=== PATIENT | female | born 1955 | race Caucasian/White ===

== ENCOUNTER 2021-06-01 14:00 | Outpatient (CLI) | payer MEDICARE, SELFPAY ==
--- NOTE | 2021-06-01 14:25 | ECG_ITS ---
Measurements Intervals [place] Rate: 54 P: -31 [place]: 165 QRS: -4 QRSD: 96 T: 76 QT: 399 QTc: 378 Interpretive Statements SINUS BRADYCARDIA BORDERLINE ST-T WAVE ABNORMALITY- HIGH LATERAL LEADS BORDERLINE ECG Electronically Signed On 06-01-2021 14:37:29 [employer] by Ynuior Cuadra D.O.
== END 2021-06-01 14:01 | disposition home or self-care (01) ==
PROVIDERS: PCP Family Medicine; Visit Provider Physician Assistant Medical
DX: Z01.810 Encounter for preprocedural cardiovascular examination (principal)
CPT/HCPCS: 93005

== ENCOUNTER → 2021-07-04 13:57 | Outpatient (CLI) | payer MEDICARE, SELFPAY ==
--- NOTE | ~2021-07-04 | MM_ITS ---
EXAMINATION: MM screening joi BI w luis a HISTORY: Screening mammogram TECHNIQUE: Craniocaudal and mediolateral oblique 3-D tomosynthesis images were obtained and synthetic 2-D images were generated. CAD analysis was submitted and interpreted. COMPARISON: 04/14/2019 bilateral screening mammogram BREAST PARENCHYMAL COMPOSITION: The breasts are heterogeneously dense, which may obscure small masses . FINDINGS: There is a biopsy marker on the left; history of prior bilateral benign breast biopsies, by stereotactic approach on the left in 2018 and excisional biopsy on the right in 2013 approximately. There is no evidence of suspicious mass, calcification, or architectural distortion to suggest malign rosalia in either breast. There has been no suspicious interval change. IMPRESSION: 1. No mammographic evidence of malignancy. 2. Recommend routine screening mammography in one year. BI-RADS Category 2: Benign finding(s). Reviewed, dictated and finalized at location A.
== END ==
PROVIDERS: PCP Family Medicine; Visit Provider Obstetrics & Gynecology
DX: Z12.31 Encounter for screening mammogram for malignant neoplasm of breast (principal)
CPT/HCPCS: 77063; 77067

== ENCOUNTER 2022-07-13 06:03 | Day surgery (SDC) | payer MEDICARE, SELFPAY ==
[2022-06-29 14:52] VITALS: BMI 29.0
[2022-07-03 09:39] VITALS: BMI 29.0
--- NOTE | 2022-07-10 12:28 | PM.IMHP ---
H&P: HPI History of Present Illness Date/Time: 07/10/22 12:28 Chief Complaint: postmenopausal bleeding Narrative: this is a 66-year-old female with postmenopausal bleeding admitted for hysteroscopy and dilatation curettage. Risks and benefits reviewed. Ultrasound showed endometrial lining to be greater than 4mm. She received the ACOG handouts entitled hysteroscopy as well as dilatation curettage. She had all questions answered and asked to proceed PMFSH Past Medical History Medical History BMI 28.0-28.9,adult Need for pneumococcal vaccination Rosacea Screening for lipid disorders Squamous cell carcinoma of left lower leg Family History Family History Mother Family history of lymphoma Father Family history of chronic obstructive pulmonary disease Family history of lung cancer Other Cerebrovascular accident Family history of heart disease in male family member before age 55 Family history of malignant neoplasm of male breast Hypertension Social History Social History Smoking status: Never smoker Second hand tobacco smoke exposure: No Alcohol intake: never Substance use: never Substance use type: does not use Living arrangements: with family Spiritual care concerns: No Meds Home Medications and Allergies Home Medications Medication Instructions Recorded Confirmed Type doxycycline hyclate 50 mg capsule 50 mg PO DAILY #90 caps 09/27/21 07/03/22 Rx rosuvastatin 20 mg tablet (Crestor) 20 mg PO EVERY OTHER DAY 07/03/22 07/03/22 History vit P-ecs-ucwz-bioflav-122HC 500 1 tablet PO DAILY 07/03/22 07/03/22 History mg-2.5 mg-25 mg tablet Allergies Allergy/AdvReac Type Severity Reaction Status Date / Time hydrocodone Allergy Unknown Unknown Verified 06/01/21 12:48 Exam Const: General: cooperative, healthy appearing, comfortable, well groomed and average body habitus Orientation/consciousness: oriented to person, oriented to place and oriented to time HENMT: Head: normal to inspection Resp: Effort & Inspection: normal respiratory effort Cardio: Rate: regular rate Rhythm: regular rhythm Heart sounds: S1 normal heart sound present and S2 normal heart sound present GI: Inspection: normal to inspection Auscultation: normal bowel sounds : External Female Exam: normal external appearance Speculum Exam - Vagina: normal appearance of the vagina Speculum Exam - Cervix: normal appearance of the cervix Bimanual exam- vagina & uterus: consistency normal Bimanual Exam- Adnexa, other: normal adnexae Assessment and Plan Assessment and plan (1) Postmenopausal bleeding: Code(s): N95.0 - Postmenopausal bleeding Status: Acute Plan hysteroscopy/dilatation and curettage
--- NOTE | 2022-07-13 05:42 | WPDHPUPDATE1 ---
History and Physical Update Update Date/Time: 07/13/22 05:42 History and Physical has been reviewed, including an updated exam of the patient. There are NO changes in the patient's condition. Risks, benefits, and alternatives have been discussed and questions answered. Patient agrees to proceed with procedure.
[2022-07-13] MEDS: ACETAMINOPHEN 500 MG TABLET 1000 MG PO (06:29)
[2022-07-13 06:31] VITALS: BP 146/62; PULSE 69; RESP 16; TEMP 37.2; O2SAT 98
[2022-07-13] MEDS: LACTATED RINGERS 1,000 ML 30 ML IV CONT (06:52)
--- NOTE | 2022-07-13 07:05 | WPDANESEPPF ---
Anes - Initial Pre Proc Eval Procedure: Operation Date: 07/13/22 07:30 Proposed Procedures p Hysteroscopy w/Dilation and Curettage - Joaquin Maza MD Date/Time: 07/13/22 07:05 Surgeon: Joaquin Maza MD Pre Op Diagnosis: Post Menopausal Bleeding Patient Data Age: 66 Gender: F Height: 1.7 m Weight: 84 kg Last Vital Signs Temp 37.2 C 07/13/22 06:31 Pulse 69 07/13/22 06:31 Resp 16 07/13/22 06:31 BP 146/62 H 07/13/22 06:31 Pulse Ox 98 07/13/22 06:31 O2 Del Method Room Air 07/13/22 06:31 Allergies Allergy/AdvReac Type Severity Reaction Status Date / Time hydrocodone Allergy Unknown Unknown Verified 07/13/22 06:26 Home Medications Medication Instructions Recorded Confirmed Type doxycycline hyclate 50 mg capsule 50 mg PO DAILY #90 caps 09/27/21 07/13/22 Rx rosuvastatin 20 mg tablet (Crestor) 20 mg PO EVERY OTHER DAY 07/03/22 07/13/22 History vit O-lvc-kcrf-bioflav-122HC 500 1 tablet PO DAILY 07/03/22 07/13/22 History mg-2.5 mg-25 mg tablet tramadol 50 mg tablet 50 mg PO Q6H PRN pain #10 tabs 07/13/22 Rx Patient hx anesthesia problems: none Family hx anesthesia problems: none Results Review: All pre-operative results and documents have been reviewed as part of the pre-operative evaluation. [facility] Past Medical History Medical History (Updated 07/12/22 @ 08:29 by Rigoberto Bruner DO) BMI 28.0-28.9,adult Hyperlipidemia Need for pneumococcal vaccination Rosacea Screening for lipid disorders Squamous cell carcinoma of left lower leg Family History Family History Mother Family history of lymphoma Father Family history of chronic obstructive pulmonary disease Family history of lung cancer Other Cerebrovascular accident Family history of heart disease in male family member before age 55 Family history of malignant neoplasm of male breast Hypertension Social History Social History Smoking status: Never smoker Second hand tobacco smoke exposure: No Alcohol intake: never Substance use: never Substance use type: does not use Living arrangements: with family Spiritual care concerns: No Anes - Eval Final PreProcedure Day of Procedure 07/13/22 07:05 Patient weight: overweight Heart: regular rate and rhythm Lungs: clear to auscultation Airway: Mallampati scale class II Neurological: alert and oriented Last oral intake: >/= 8 hours ASA classification: II Emergent: no Anesthetic plan: proceed Anesthesia type and monitoring: general GIVS and standard monitoring Results Review: All pre-operative results and documents have been reviewed as part of the pre-operative evaluation. Informed Consent: The patient's anesthetic plan and its attendant risks and benefits were discussed with the patient/family/POA. Questions were solicited and answers provided to the satisfaction of the patient/family/POA.
--- NOTE | 2022-07-13 07:41 | W.PM.PROC2 ---
Procedure Note - Detailed Date of Procedure 07/13/22 Pre-op Diagnosis Post Menopausal Bleeding Post-op Diagnosis Same Procedure Performed Hysteroscopy / dilatation curettage Surgeon Joaquin Maza MD Anesthesia MAC and Local Indications a 66-year-old female with postmenopausal bleeding Findings uterus sounded to 7cm. Benign atrophic endometrium was seen bilaterally. Description of Procedure The patient was prepped draped in normal sterile fashion placed in the dorsal lithotomy position. Excellent IV sedation weighted speculum placed in posterior fornix vagina. Anterior lip of the cervix grasped with single-tooth tenaculum 2.5cc of 1% xylocaine anesthesia placed at 2, 4, 8, 10:00 a.m. of the cervix. Uterus sounded to 7.5cm. Serial dilatation with fragmented dilators performed followed by passes the 5mm visualizing hysteroscope. Normal saline was used as visualizing medium. No abnormalities was seen. Each fallopian tube os could be seen the endometrium appeared bland and atrophic. Uterus was then scraped over the entire 360? until good grating sound was heard. Minimal tissue was able to be removed. The instruments with withdrawn the patient awakened. She went to recovery in satisfactory condition. All sponge, needle, instrument counts were correct. There were no immediate complications Estimated Blood Loss 5 Drains No Packing No Pathology Yes Complications No immediate complications Condition Stable Disposition PACU
[2022-07-13 07:48] VITALS: BP 130/67; PULSE 64; RESP 16; TEMP 36.4; O2SAT 98
[2022-07-13 08:00] VITALS: BP 132/81; PULSE 60; RESP 18; O2SAT 100
[2022-07-13] MEDS: LIDOCAINE HCL 1% LOCAL INJ 10 ML VIAL INFILTRATE (08:06)
[2022-07-13 08:15] VITALS: BP 138/77; PULSE 55; RESP 16; O2SAT 99
[2022-07-13 08:30] VITALS: BP 135/74; PULSE 58; RESP 18; O2SAT 99
== END 2022-07-13 09:00 | disposition home or self-care (01) ==
PROVIDERS: PCP Family Medicine; Visit Provider Obstetrics & Gynecology
PROC: 0U5B8ZZ Destruction of Endometrium, Via Natural or Artificial Opening Endoscopic (ICD-10-PCS; CPT 58563; principal; 2022-07-13 07:30)
DX: N95.0 Postmenopausal bleeding (principal)
CPT/HCPCS: 58558

== ENCOUNTER 2022-07-13 09:00 | Outpatient (NON) | payer MEDICARE, SELFPAY | END 2022-07-13 09:01 | disposition home or self-care (01) | LOC: ANHLAB 07-14 08:09 | PROVIDERS: PCP Family Medicine; Visit Provider Obstetrics & Gynecology | DX: N95.0 Postmenopausal bleeding (principal) | CPT/HCPCS: 88305 ==

== ENCOUNTER → 2022-08-07 15:50 | Outpatient (CLI) | payer MEDICARE, SELFPAY ==
--- NOTE | ~2022-08-07 | MM_ITS ---
EXAMINATION: MM screening joi BI w luis a HISTORY: Screening mammogram TECHNIQUE: Craniocaudal and mediolateral oblique 3-D tomosynthesis images were obtained and synthetic 2-D images were generated.. Bilateral rotated lateral CC views. CAD analysis was submitted and inter preted. COMPARISON: 07/04/2021, 04/14/2019 bilateral screening mammogram examinations BREAST PARENCHYMAL COMPOSITION: The breasts are heterogeneously dense, which may obscure small masses . FINDINGS: There is a biopsy marker on the left; history of bilateral prior benign breast biopsies. Th ere is no evidence of suspicious mass, calcification, or architectural distortion to suggest malignan cy in either breast. There has been no suspicious interval change. IMPRESSION: 1. No mammographic evidence of malignancy. 2. Recommend routine screening mammography in one year. BI-RADS Category 2: Benign finding(s). Reviewed, dictated and finalized at location A.
== END ==
PROVIDERS: PCP Family Medicine; Visit Provider Obstetrics & Gynecology
DX: Z12.31 Encounter for screening mammogram for malignant neoplasm of breast (principal)
CPT/HCPCS: 77063; 77067

== ENCOUNTER 2023-09-26 13:28 | Outpatient (CLI) | payer MEDICARE, SELFPAY ==
--- NOTE | ~2023-09-26 | MM_ITS ---
EXAMINATION: MM screening joi BI w luis a HISTORY: Screening TECHNIQUE: Craniocaudal and mediolateral oblique 3-D tomosynthesis images were obtained and synthetic 2-D images were generated. CAD analysis was submitted and interpreted. COMPARISON: Comparison to multiple prior studies sequentially, with oldest reviewed study dated 03/18. BREAST PARENCHYMAL COMPOSITION: Dense: The breasts are heterogeneously dense, which may obscure small masses FINDINGS: There is no evidence of suspicious mass, calcification, or architectural distortion to sugg est malignancy in either breast. There has been no suspicious interval change. IMPRESSION: 1. No mammographic evidence of malignancy. 2. Recommend routine screening mammography in one year. BI-RADS Category 1: Negative Reviewed, dictated and finalized at location B.
== END 2023-09-26 13:29 ==
LOC: MICIMG 13:29
PROVIDERS: PCP Family Medicine; Visit Provider Obstetrics & Gynecology
DX: Z12.31 Encounter for screening mammogram for malignant neoplasm of breast (principal)
CPT/HCPCS: 77063; 77067

== ENCOUNTER 2023-10-31 13:55 | Outpatient (CLI) | payer MEDICARE, SELFPAY ==
--- NOTE | 2023-10-31 15:12 | ECG_ITS ---
Test Date: 2023-10-31 15:25:36 Measurements Intervals [place] Rate: 64 P: 26 [place]: 170 QRS: 10 QRSD: 109 T: 89 QT: 387 QTc: 400 Interpretive Statements SINUS RHYTHM POOR R WAVE PROGRESSION ST-T WAVE ABNORMALITY IN HIGH LATERAL LEADS- CONSIDER ISCHEMIA BASELINE ARTIFACT- I, II, III, AVR, AVL, AVF, V1-V3 ABNORMAL ECG No previous ECG available for comparison Electronically Signed On 10-31-2023 17:39:13 CDT by Yunior Cuadra D.O.
[2023-10-31 15:34] LABS: Basophils Percent Auto 0.5 % (0.2-1.2); Eosinophils Absolute Auto 0.1 K/mm3 (0-0.3); Eosinophils Percent Auto 2.1 % (0-4.4); Hematocrit 42.8 % (37.0-47.0); Hemoglobin 13.5 g/dL (12.0-15.0); Immature Granulocyte Absolute 0.02 K/mm3 (0.00-0.031); Immature Granulocyte Percent A 0.3 % (0-0.5); Lymphocytes Absolute Auto 1.66 K/mm3 (0.9-3.2); Lymphocytes Percent Auto 26.9 % (18.3-44.2); Mean Corpuscular HGB Conc 31.5 g/dl (32-36); Mean Corpuscular Hemoglobin 30.8 pg (26-34); Mean Corpuscular Volume 97.7 fl (80-100); Mean Platelet Volume 10.7 fl (7.4-10.4); Monocytes Absolute Auto 0.6 K/mm3 (0.1-0.6); Monocytes Percent Auto 9.7 % (2.6-8.5); Neutrophils Absolute Auto 3.7 K/mm3 (1.3-6.7); Neutrophils Percent Auto 60.5 % (45.5-73.1); Platelet Count Result 151 k/mm3 (150-375); Red Blood Count 4.38 M/mm3 (4.2-5.4); Red Cell Distribution Width 12.5 % (11.5-14.5); White Blood Count 6.2 K/mm3 (4.5-10.0)
[2023-10-31 15:44] LABS: INR 0.9; Prothrombin Time 12.9 Seconds (11.1-14.7)
[2023-10-31 15:45] LABS: Partial Thromboplastin Time 25.5 Seconds (22.3-36.8)
[2023-10-31 15:49] LABS: Alanine Aminotransferase 24 U/L (6-35); Albumin Level 4.1 g/dL (3.5-5.1); Alkaline Phosphatase 118 U/L (38-126); Anion Gap 6 mmol/L (4-12); Aspartate Amino Transferase 32 U/L (14-36); Bilirubin,Total 0.6 mg/dL (0.2-1.3); Blood Urea Nitrogen 13 mg/dL (7-17); Calcium 9.4 mg/dL (8.4-10.2); Carbon Dioxide 33 mmol/L (22-30); Chloride 104 mmol/L (98-107); Estimated Glomerular Filt Rate > 60; Glucose 157 mg/dL (65-110); Potassium 4.5 mmol/L (3.4-5.0); Sodium 143 mmol/L (137-145)
== END 2023-10-31 13:56 | disposition home or self-care (01) ==
LOC: ANHSURGERY 13:58
PROVIDERS: PCP Family Medicine; Visit Provider Urology
DX: Z01.818 Encounter for other preprocedural examination (principal); N81.2 Incomplete uterovaginal prolapse; E78.5 Hyperlipidemia, unspecified; R94.31 Abnormal electrocardiogram [ECG] [EKG]
CPT/HCPCS: 36415; 80053; 85025; 85610; 85730; 86850; 86900; 86901; 93005

== ENCOUNTER 2023-11-12 00:27 | Day surgery (SDC) | payer MEDICARE, SELFPAY ==
[2023-10-31 14:25] VITALS: BP 121/71; PULSE 65; RESP 16; TEMP 37.6; O2SAT 97
[2023-10-31 14:26] VITALS: BMI 32.1
--- NOTE | 2023-10-31 14:49 | PC.NURSE ---
Report to the Outpatient Waiting Room, entrance under the green pavilion located off [facility], at time __6:00AM on date __11/12/23 . Planned Procedure Time: __7:30AM . Time changes happen often and if your time is changed the preop area will call you the afternoon before. - You and your visitor will be asked to self-screen and do not enter if you have any COVID symptoms. - A mask is optional within the hospital at this time. Patients may have clear liquids (water, carbonated beverages, clear teas, apple juice) until 3 hours prior to surgery with a maximum of 20 ounces. - No food from midnight until time of surgery. Take the following medications with a SIP of water the morning of surgery: ___NONE DO NOT STOP ANY OF YOUR OTHER PRESCRIPTION MEDICATIONS PRIOR TO SURGERY ?EXCEPT THE FOLLOWING Medications to discontinue per physician ____HOLD ALL VITAMINS/SUPPLEMENTS AND NSAIDS(IBUPROFEN)7 DAYS PRE-OP PER DR ESPINOZA Date to take last dose 11/04/23 Please no make-up, nail italian, hairspray, perfume, deodorant, or body powder the day of surgery. No jewelry (including any body piercings) or valuables the day of surgery, leave them at home. Please take a shower or bath the night before, or the morning of, surgery with an antibacterial soap. Wear comfortable, loose fitting clothing. - Jewelry must be removed prior to entering the operating room. Rings and piercings that are not removed may be cut off. - The hospital will not accept responsibility for valuables. - Please leave all valuables, including medications, at home the day of surgery. If you are going home after surgery, a licensed company driver must drive you home. - NO public transportation without another adult if you receive anesthesia. - We recommend that an adult stay with you for 24 hours following discharge. - We also recommend that you do not drive, make important decision, drink alcoholic beverages, or take any drugs that were not prescribed by your health care provider for at least 24 hours after your discharge time. Follow any additional instructions given to you from your surgeon. If you or anyone in your household have experienced Covid symptoms in the past week, please notify your surgeon or the nurse liaison at the phone number below for possible testing. Telephone instructions given to ____PATIENT and asked if any additional questions and then verbalized understanding. Patient advised to call surgeon office or pre surgery nurse liaison [phone] if any additional questions.
--- NOTE | 2023-11-04 09:40 | PM.IMHP ---
H&P: HPI History of Present Illness Date/Time: 11/04/23 09:40 Chief Complaint: pelvic organ prolapse Narrative: she has pelvic organ prolapse as well as occult stress incontinence Review of Systems Review of Systems: All systems reviewed & are unremarkable except as noted in HPI and below PMFSH Past Medical History Medical History BMI 28.0-28.9,adult BMI 30.0-30.9,adult Hyperlipidemia Need for pneumococcal vaccination Retinal tear Rosacea Screening for lipid disorders Squamous cell carcinoma of left lower leg Surgical History Surgical History History of dilation and curettage Family History Family History Mother Family history of lymphoma Father Family history of chronic obstructive pulmonary disease Family history of lung cancer Asbestosis COPD (chronic obstructive pulmonary disease) Sibling No problems noted. Other Cerebrovascular accident Family history of heart disease in male family member before age 55 Family history of malignant neoplasm of male breast Hypertension Social History Social History Smoking status: Never smoker Second hand tobacco smoke exposure: No Alcohol intake: never Substance use: never Substance use type: does not use Lack of Transportation: No Lack of Food: Never True Current Housing: I Have Housing Concerned About Future Housing: No Difficulty Paying Gas/Electric Bills: No Difficulty Paying for Meds: No Currently Unemployed: No Education: Trade/Vocational Certificate Difficulty w/ Childcare or Family Care: No Living arrangements: with family Additional living arrangements comments: [facility] Occupation/Education: retired 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 Gender identity (if verbalized by the patient): Female Spiritual care concerns: No Meds Home Medications and Allergies Home Medications Medication Instructions Recorded Confirmed Type vit B-ujp-vrrr-bioflav-122HC 500 1 tablet PO DAILY 07/03/22 10/31/23 History mg-2.5 mg-25 mg tablet rosuvastatin 20 mg tablet (Crestor) 20 mg PO EVERY OTHER DAY #90 tabs 08/23/23 10/31/23 Rx carboxymethyl 0.5 %-glycerin 1 1 drp EACH EYE QID PRN Dry Eye(S) 10/31/23 10/31/23 History %-polysorb 80 0.5 %-PF eye dropperette (Refresh Optive Gregory-3 (PF)) doxycycline hyclate 50 mg capsule 50 mg PO QACLUNCH 10/31/23 10/31/23 History ibuprofen 200 mg tablet 600 mg PO Q6H PRN Pain 10/31/23 10/31/23 History ketoconazole 2 % topical cream 1 applic topical HS PRN Skin 10/31/23 10/31/23 History Irritation Allergies Allergy/AdvReac Type Severity Reaction Status Date / Time hydrocodone AdvReac Severe Nausea Verified 10/31/23 14:14 Exam Narrative: no acute distress normal breathing apex at 0 alert and oriented x3 urethral mobility Assessment and Plan Assessment and plan (1) Uterine prolapse: Code(s): N81.4 - Uterovaginal prolapse, unspecified Status: Acute (2) BRI (stress urinary incontinence, female): Code(s): N39.3 - Stress incontinence (female) (male) Status: Acute Plan plan for robotic colpopexy for her uterine prolapse. Urethral sling secondary to occult stress incontinence. Understands risks of bleeding, infection, damage to surrounding organs, damage to the urinary tract, diskitis, recurrent or persistent prolapse, recurrent or persistent incontinence, hip and leg pain, mesh exposure, dyspareunia, urinary retention. Agrees to proceed
[2023-11-12] VITALS (10 sets, daily range): BP systolic 127–158; BP diastolic 73–87; PULSE 65–88; RESP 12–18; TEMP 36.1–37.1; O2SAT 95–100
--- NOTE | 2023-11-12 04:33 | WPDHPUPDATE1 ---
History and Physical Update Update Date/Time: 11/12/23 04:33 History and Physical has been reviewed, including an updated exam of the patient. There are NO changes in the patient's condition. Risks, benefits, and alternatives have been discussed and questions answered. Patient agrees to proceed with procedure.
--- NOTE | 2023-11-12 05:59 | PM.IMHP ---
H&P: HPI History of Present Illness Date/Time: 11/12/23 05:59 Chief Complaint: Uterine prolapse Narrative: 60-year-old female admitted for supracervical hysterectomy and bilateral salpingo oophorectomy secondary to uterine prolapse. She also will undergo sling and sacral colpopexy robotically. Risks and benefits reviewed [facility] Past Medical History Medical History BMI 28.0-28.9,adult BMI 30.0-30.9,adult Hyperlipidemia Need for pneumococcal vaccination Retinal tear Rosacea Screening for lipid disorders Squamous cell carcinoma of left lower leg Surgical History Surgical History History of dilation and curettage Family History Family History Mother Family history of lymphoma Father Family history of chronic obstructive pulmonary disease Family history of lung cancer Asbestosis COPD (chronic obstructive pulmonary disease) Sibling No problems noted. Other Cerebrovascular accident Family history of heart disease in male family member before age 55 Family history of malignant neoplasm of male breast Hypertension Social History Social History Smoking status: Never smoker Second hand tobacco smoke exposure: No Alcohol intake: never Substance use: never Substance use type: does not use Lack of Transportation: No Lack of Food: Never True Current Housing: I Have Housing Concerned About Future Housing: No Difficulty Paying Gas/Electric Bills: No Difficulty Paying for Meds: No Currently Unemployed: No Education: Trade/Vocational Certificate Difficulty w/ Childcare or Family Care: No Living arrangements: with family Additional living arrangements comments: [facility] Occupation/Education: retired 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 Gender identity (if verbalized by the patient): Female Spiritual care concerns: No Meds Home Medications and Allergies Home Medications Medication Instructions Recorded Confirmed Type vit O-kwo-emlj-bioflav-122HC 500 1 tablet PO DAILY 07/03/22 10/31/23 History mg-2.5 mg-25 mg tablet rosuvastatin 20 mg tablet (Crestor) 20 mg PO EVERY OTHER DAY #90 tabs 08/23/23 10/31/23 Rx carboxymethyl 0.5 %-glycerin 1 1 drp EACH EYE QID PRN Dry Eye(S) 10/31/23 10/31/23 History %-polysorb 80 0.5 %-PF eye dropperette (Refresh Optive Gregory-3 (PF)) doxycycline hyclate 50 mg capsule 50 mg PO QACLUNCH 10/31/23 10/31/23 History ibuprofen 200 mg tablet 600 mg PO Q6H PRN Pain 10/31/23 10/31/23 History ketoconazole 2 % topical cream 1 applic topical HS PRN Skin 10/31/23 10/31/23 History Irritation Allergies Allergy/AdvReac Type Severity Reaction Status Date / Time hydrocodone AdvReac Severe Nausea Verified 10/31/23 14:14 Exam Const: General: cooperative, healthy appearing and comfortable Nutritional Appearance: average body habitus Orientation/consciousness: oriented to person, oriented to place and oriented to time Resp: Effort & Inspection: normal respiratory effort Cardio: Rate: regular rate Rhythm: regular rhythm Heart sounds: S1 normal heart sound present and S2 normal heart sound present GI: Inspection: normal to inspection : External Female Exam: normal external appearance Speculum Exam - Vagina: normal appearance of the vagina (Uterine prolapse noted) Speculum Exam - Cervix: normal appearance of the cervix Bimanual exam- vagina & uterus: Uterus displaced (Uterine prolapse noted) Bimanual Exam- Adnexa, other: normal adnexae Assessment and Plan Assessment and plan (1) BRI (stress urinary incontinence, female): Code(s): N39.3 - Stress incontinence (female) (male) Status: Acute (2) Uterine prolapse: Code(s): N
--- NOTE | 2023-11-12 06:01 | WPDHPUPDATE1 ---
History and Physical Update Update Date/Time: 11/12/23 06:01 History and Physical has been reviewed, including an updated exam of the patient. There are NO changes in the patient's condition. Risks, benefits, and alternatives have been discussed and questions answered. Patient agrees to proceed with procedure.
[2023-11-12] MEDS: LACTATED RINGERS 1,000 ML 30 ML IV CONT ×2 (06:20→10:22)
[2023-11-12] MEDS: ACETAMINOPHEN 500 MG TABLET 1000 MG PO (06:25)
[2023-11-12] MEDS: KETOROLAC 15 MG/ML VIAL (*BKC) IV PUSH ×2 (06:25→12:32)
--- NOTE | 2023-11-12 07:11 | WPDHPUPDATE1 ---
History and Physical Update Update Date/Time: 11/12/23 07:11 History and Physical has been reviewed, including an updated exam of the patient. There are NO changes in the patient's condition. Risks, benefits, and alternatives have been discussed and questions answered. Patient agrees to proceed with procedure.
--- NOTE | 2023-11-12 07:27 | WPDANESEPPF ---
Anes - Initial Pre Proc Eval Procedure: Operation Date: 11/12/23 07:30 Proposed Procedures p Robotic Sacrocolpopexy, Urethral Sling - Abdirizak Mcfadden MD s Robotic Assisted Supracervical Hysterectomy with Bilateral Salpingo-oophorectomy - Joaquin Maza MD Date/Time: 11/12/23 07:27 Surgeon: Abdirizak Mcfadden MD Pre Op Diagnosis: incompl utero vag prolpase, stress incont Patient Data Age: 68 Gender: F Height: 1.67 m Weight: 89.5 kg Last Vital Signs Temp 97.8 F 11/12/23 06:10 Pulse 83 11/12/23 06:10 Resp 16 11/12/23 06:10 BP 127/73 11/12/23 06:10 Pulse Ox 96 11/12/23 06:10 O2 Del Method Room Air 11/12/23 06:10 Allergies Allergy/AdvReac Type Severity Reaction Status Date / Time hydrocodone AdvReac Severe Nausea Verified 11/12/23 06:47 Home Medications Medication Instructions Recorded Confirmed Type vit [id number]-122HC 500 1 tablet PO DAILY 07/03/22 11/12/23 History mg-2.5 mg-25 mg tablet rosuvastatin 20 mg tablet (Crestor) 20 mg PO EVERY OTHER DAY #90 tabs 08/23/23 11/12/23 Rx carboxymethyl 0.5 %-glycerin 1 1 drp EACH EYE QID PRN Dry Eye(S) 10/31/23 10/31/23 History %-polysorb 80 0.5 %-PF eye dropperette (Refresh Optive Gregory-3 (PF)) doxycycline hyclate 50 mg capsule 50 mg PO QACLUNCH 10/31/23 11/12/23 History ibuprofen 200 mg tablet 600 mg PO Q6H PRN Pain 10/31/23 11/12/23 History ketoconazole 2 % topical cream 1 applic topical HS PRN Skin 10/31/23 10/31/23 History Irritation Patient hx anesthesia problems: none Family hx anesthesia problems: none Results Review: All pre-operative results and documents have been reviewed as part of the pre-operative evaluation. [facility] Past Medical History Medical History BMI 28.0-28.9,adult BMI 30.0-30.9,adult Hyperlipidemia Need for pneumococcal vaccination Retinal tear Rosacea Screening for lipid disorders Squamous cell carcinoma of left lower leg Surgical History Surgical History History of dilation and curettage Family History Family History Mother Family history of lymphoma Father Family history of chronic obstructive pulmonary disease Family history of lung cancer Asbestosis COPD (chronic obstructive pulmonary disease) Sibling No problems noted. Other Cerebrovascular accident Family history of heart disease in male family member before age 55 Family history of malignant neoplasm of male breast Hypertension Social History Social History Smoking status: Never smoker Second hand tobacco smoke exposure: No Alcohol intake: never Substance use: never Substance use type: does not use Lack of Transportation: No Lack of Food: Never True Current Housing: I Have Housing Concerned About Future Housing: No Difficulty Paying Gas/Electric Bills: No Difficulty Paying for Meds: No Currently Unemployed: No Education: Trade/Vocational Certificate Difficulty w/ Childcare or Family Care: No Living arrangements: with family Additional living arrangements comments: [facility] Occupation/Education: retired 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 Gender identity (if verbalized by the patient): Female Spiritual care concerns: No Anes - Eval Final PreProcedure Day of Procedure 11/12/23 07:27 Patient weight: obese Heart: regular rate and rhythm Lungs: clear to auscultation Airway: Mallampati scale class II Neurological: alert and oriented Last oral intake: >/= 8 hours ASA classification: III Emergent: no Anesthetic plan: proceed Anesthesia type and monitoring: general ETT and standard monitoring Results Review: All pre-operative results and documents have been revie
[2023-11-12] MEDS: ceFAZolin 2 GM/D5W 50 ML 2 GM/50 ML BAG IVPB (07:33)
[2023-11-12] MEDS: metroNIDAZOLE 500 MG/ISO 100ML 500 MG/100 ML BAG 100 MG IVPB ×2 (07:55→15:10)
[2023-11-12] MEDS: BUPIVACAINE/EPINEPHRINE 0.5% 10 ML VIAL 40 ML INFILTRATE (07:55)
--- NOTE | 2023-11-12 08:47 | P.OP_ITS ---
Procedure Note - Detailed Date of Procedure 11/12/23 Pre-op Diagnosis incompl utero vag prolpase, stress incont Post-op Diagnosis Same Procedure Performed Buttock supracervical hysterectomy and bilateral salpingo-oophorectomy Surgeon Joaquin Maza MD Anesthesia General Indications this is a 60-year-old female with uterine prolapse and stress urinary incontinence. This procedure was done in conjunction with Dr. Warner coded as sacral colpopexy and sling Findings uterine prolapse cystocele Description of Procedure patient was prepped draped in the normal sterile fashion placed in dorsal lithotomy position. Under excellent general trach anesthesia weighted speculum placed in posterior fornix vagina. Anterior lip of the cervix grasped with single-tooth tenaculum. Sanchez's cannula inserted the cervix attached to the single-tooth. This would be used later for uterine manipulation. A 16 Surinamese catheter was placed in the bladder which was drained of clear urine. The weighted speculum was removed the gloves were changed. Docking was done by Dr. Mcfadden and that on separate cover. After the robot had been docked the left round ligament was grasped, burned, cut. Anteriorly a bladder flap formed by sharply dissecting the peritoneum away from the you had sent cervix to the opposite round ligament was clamped, burned, cut. Next the left infundibulopelvic structure was skeletonized clamping burning cutting and bringing this down to level of previously cut round ligament. In similar fashion on the right the infundibulopelvic structure was skeletonized clamping burning cutting and bringing this to the previous cut round ligament. The cardinal broad ligaments on the left were serially skeletonized clamping, burning, cutting until the uterine vessels could be seen on the left. These were serially clamped, burned, cut. In similar fashion on right the cardinal broad ligaments were serially skeletonized clamping burning cutting and hugging the cervix uterus until the uterine vessels could be seen on the right. These were clamped, burned, cut. A supracervical incision made and hemostasis was assured blood loss was about 5cc at that point. The uterus and the tubes and ovaries were placed in Endo-Catch. Dr. Mcfadden took over from there there were no complications up to this point Estimated Blood Loss 5 Drains No Packing No Pathology Yes Complications No immediate complications Condition Stable Disposition No change
--- NOTE | 2023-11-12 09:55 | SUR.OPER ---
URETHRAL SLING START 0955.
--- NOTE | 2023-11-12 10:14 | W.PM.PROC2 ---
Procedure Note - Detailed Date of Procedure 11/12/23 Pre-op Diagnosis incompl utero vag prolpase, stress incont Post-op Diagnosis Same Procedure Performed Robotic assisted laparoscopic sacral colpopexy Urethral sling Cystoscopy Surgeon Abdirizak Mcfadden MD Anesthesia General Indications a woman with uterine prolapse as well as stress incontinence. She desires surgical correction. She is here for the above. She understands risks of bleeding, infection, diskitis, damage to surrounding organs, bowel injury, bowel obstruction, mesh related complications including exposure and extrusion, postoperative voiding dysfunction including incontinence and retention, need for ancillary procedures, dyspareunia, recurrence of prolapse, and other perioperative intraoperative postoperative complications. She agrees to proceed. Findings See below Description of Procedure She was correctly identified. Informed consent obtained. She from the operating room. She was given general anesthesia. She was given appropriate perioperative antibiotics. She was placed a low lithotomy position. Pressure points were padded. A time-out performed. I marked out the skin 3 fingerbreadths cephalad to the umbilicus. I anesthetized the skin. I incised the skin. I dissected down to the fascia. I grasped the fascia with Lennie clamps. I entered the fascia sharply in a Carreno type technique. I placed sutures for later fascial closure. I placed a midline trocar. I examined the abdomen. There is no sign of any injury. Under direct vision I placed 2 additional trocars in the right upper quadrant and 2 additional trocars the left upper quadrant. She was placed in steep Trendelenburg. The robot was docked. Her braid cutter completed their portion of the procedure. Please see that operative report for details. I then sat at the console. The Sizer in the vagina created plane on the anterior and posterior vaginal wall. I took great care not to injure the vagina, bladder, or rectum. I closed with cervical os with a 2-0 vicryl suture. I introduced the mesh into the abdomen. I sewed the anterior leaflet of mesh on the anterior vaginal wall. I sewed the posterior leaflet of mesh on the posterior vaginal wall. This was done with several sutures of 2 0 Flora-Larry. I reflected the colon laterally. I opened the posterior peritoneum over the sacral promontory. I carried this into the cul-de-sac. I freed up the edges for later retroperitonealization. I located the anterior longitudinal ligament the sacrum. I cleaned off all fatty tissues. I then tensioned my mesh appropriately. I did a vaginal exam the bedside. I assured prolapse reduction without undue tension. I then sewed the proximal leaflet of mesh onto the anterior longitudinal ligament of the sacrum with 4 sutures of 2 0 Flora-Larry. I then used a 2 0 Monocryl to completely and meticulously retroperitonealized all mesh. I allowed the colon to go back to its normal anatomic location. There is no sign of any impingement. The specimen was then removed. All ports removed. Fascia was tied down. Skin was closed with Monocryl and surgical glue. She was repositioned and prepped for urethral sling. I marked out the inner thigh incisions. I anesthetized the skin and made the incisions. I then anesthetized the anterior vaginal wall at the mid urethra. I made a 1 cm incision. I dissected out laterally taking great care not to injure the refilled vaginal wall. I passed the helical trocars. I did this 1st on the left and then on the right. This was done from the thigh incision towards the vaginal incision. Sling was connected to the trocars and brought out the thigh incision. I tensioned the sling appropriately. I cut and the plastic sheaths. I closed the incision with 2 0 Vicryl. I then performed cystoscopy. There was no tumors or surgical artifact. Both ureters were seen to excrete clear yellow urine. There is no surgical a
[2023-11-12] MEDS: fentaNYL CITRATE INJ (*CRX) 100 MCG/2 ML VIAL 25 MCG IV PUSH (11:07)
--- NOTE | 2023-11-12 11:55 | PC.NURSE ---
This patient, Katie Quintana, was received from PACU on 11/12/23 at 1155. Patient/family oriented to unit policies and routines
[2023-11-12] MEDS: KCL 20 MEQ/D5/0.45% SOD CHL 1,000 ML 100 ML IV CONT (12:32)
[2023-11-12] MEDS: DOCUSATE SODIUM 100 MG CAPSULE PO (15:09)
[2023-11-12] MEDS: traMADol HCL (*CRX) 50 MG TABLET PO (15:09)
[2023-11-12] MEDS: ceFAZolin 1 GM/NS 50 ML 1 GM/50 ML BAG IVPB (16:47)
[2023-11-12] MEDS: ACETAMINOPHEN 325 MG TABLET 650 MG PO (19:26)
[2023-11-13] MEDS: KCL 20 MEQ/D5/0.45% SOD CHL 1,000 ML 100 ML IV CONT (01:10)
[2023-11-13] MEDS: ceFAZolin 1 GM/NS 50 ML 1 GM/50 ML BAG IVPB ×2 (01:14→09:04)
[2023-11-13 01:56] VITALS: BP 141/74; PULSE 71; RESP 16; TEMP 36.8; O2SAT 96
[2023-11-13] MEDS: metroNIDAZOLE 500 MG/ISO 100ML 500 MG/100 ML BAG 100 MG IVPB ×2 (02:32→09:36)
[2023-11-13 05:40] VITALS: BP 142/76; PULSE 79; RESP 16; TEMP 36.7; O2SAT 95
[2023-11-13 06:09] LABS: Hematocrit 37.4 % (37.0-47.0); Immature Platelet Fraction Pct 4.3 % (0.9-11.2); Mean Corpuscular HGB Conc 32.1 g/dl (32-36); Mean Corpuscular Hemoglobin 31.3 pg (26-34); Mean Corpuscular Volume 97.7 fl (80-100); Mean Platelet Volume 10.4 fl (7.4-10.4); Platelet Count Result 147 k/mm3 (150-375); Red Blood Count 3.83 M/mm3 (4.2-5.4); Red Cell Distribution Width 12.7 % (11.5-14.5); White Blood Count 10.1 K/mm3 (4.5-10.0)
--- NOTE | 2023-11-13 06:10 | PM.GYNPNOP ---
MILK PICKUP DRIVER - A/P Postoperative Procedures: Procedures Operation Date: 11/12/23 07:30 Actual Procedure Side Surgeon p Robotic Sacrocolpopexy, Urethral Sling Not Applicable Abdirizak Mcfadden MD s Robotic Assisted Supracervical Hysterectomy with Bilateral Salpingo-oophorectomy Bilateral Joaquin Maza MD Postoperative day: 1 Postoperative status: doing well Postoperative plan: routine post-op care, see orders, ambulate, advance diet, voiding trials and discharge Time Spent With Patient Time: Total time spent is greater than 50% in coordination of care (as documented) at patient's floor/unit and/or counseling patient: Time with patient: less than 15 minutes MILK PICKUP DRIVER- PN:Subj Post-Op Subjective Date/time seen: 11/13/23 06:10 Subjective: patient reports feeling better, patient has no complaints, patient desires discharge, pain is well controlled and patient is tolerating oral intake Exam Const: General: cooperative, healthy appearing and comfortable Nutritional Appearance: average body habitus Orientation/consciousness: oriented to person, oriented to place and oriented to time HENMT: Head: normal to inspection Resp: Effort & Inspection: normal respiratory effort Cardio: Rate: regular rate Rhythm: regular rhythm Heart sounds: S1 normal heart sound present and S2 normal heart sound present GI: Inspection: normal to inspection and incision ( wounds are clean dry and intact) MILK PICKUP DRIVER - PN: Obj Data Vital Signs Vital Signs: Vital Signs - 24 hr 11/12/23 10:22 11/12/23 10:35 11/12/23 10:50 Temperature 97.1 F L Pulse Rate 74 71 65 Respiratory Rate 12 12 12 Blood Pressure 154/87 H 149/83 H 158/83 H Pulse Oximetry 98 100 100 Oxygen Delivery Simple Face Mask Simple Face Mask Simple Face Mask Oxygen Flow Rate 6 6 6 11/12/23 11:05 11/12/23 11:20 11/12/23 11:35 Temperature 97.0 F L Pulse Rate 74 68 72 Respiratory Rate 14 18 12 Blood Pressure 150/82 H 135/79 141/77 H Pulse Oximetry 100 95 95 Oxygen Delivery Room Air Room Air Room Air Oxygen Flow Rate 11/12/23 12:05 11/12/23 16:00 11/12/23 20:38 Temperature 97.5 F L 98.6 F 98.7 F Pulse Rate 78 88 83 Respiratory Rate 16 16 14 Blood Pressure 149/75 H 155/78 H 148/84 H Pulse Oximetry 95 95 97 Oxygen Delivery Oxygen Flow Rate 11/12/23 20:38 11/13/23 01:56 11/13/23 01:56 Temperature 98.3 F Pulse Rate 83 71 71 Respiratory Rate 14 16 16 Blood Pressure 141/74 H Pulse Oximetry 97 96 96 Oxygen Delivery Room Air Room Air Oxygen Flow Rate Intake/Output Intake/Output: Intake & Output 11/10/23 11/11/23 11/12/23 11/13/23 23:59 23:59 23:59 23:59 Intake Total 2180 Output Total 400 Balance 1780 Meds/Results Medications: Active Medications Generic Name Dose Route Start Last Admin Trade Name Freq PRN Reason Stop Dose Admin Acetaminophen 650 mg 11/12/23 11:44 11/12/23 19:26 Acetaminophen 325 Mg Tablet PO 650 mg Q4H PRN Administration Mild Pain (1-3) or Fever Cephalexin HCl 500 mg 11/13/23 13:00 Cephalexin 500 Mg Capsule PO QID SANDRA Diphenhydramine HCl 25 mg 11/12/23 11:44 Diphenhydramine Hcl Inj 50 Mg/Ml Vial IV PUSH Q6H PRN Itching Docusate Sodium 100 mg 11/12/23 11:44 11/12/23 15:09 Docusate Sodium 100 Mg Capsule PO 100 mg DAILY SANDRA Administration Enoxaparin Sodium 30 mg 11/13/23 09:00 Enoxaparin 30 Mg/0.3 Ml Syringe SUB-Q DAILY SANDRA Potassium Chloride/Dextrose/Sod Cl 1,000 mls @ 100 mls/hr 11/12/23 11:44 11/13/23 01:10 Kcl 20 Meq/D5/0.45% Sod Chl IV CONT 100 mls/hr .Q10H SANDRA Administration Cefazolin Sodium 1 gm in 50 mls @ 100 mls/hr 11/12/23 16:00 11/13/23 01:14 Ancef 1 Gm/Ns 50 Ml IVPB 11/13/23 08:29 100 mls/hr Q8H SANDRA Administration Metronidazole 500 mg in 100 mls @ 100 mls/hr 11/12/23 16:00 11/13/23 02:32 Flagyl 500 Mg/Iso Soln 100 Ml IVPB 100 mls/hr Q8H SANDRA Administration Ketorolac Tromethamine 15 mg 11/12/23
--- NOTE | 2023-11-13 06:12 | PM.DS ---
DS: Admitting Diagnosis Discharge Date 11/13/2023 Admitting Diagnosis stress urinary incontinence and uterine prolapse DS: Discharge Diagnosis Discharge Diagnosis (1) Uterine prolapse: Code(s): N81.4 - Uterovaginal prolapse, unspecified Status: Acute (2) BRI (stress urinary incontinence, female): Code(s): N39.3 - Stress incontinence (female) (male) Status: Acute DS: Summary Hospital Course Reason for hospitalization: 68-year-old female was admitted on 11/12/2023 for robotic supracervical hysterectomy bilateral salpingo-oophorectomy robotic sacral colpopexy and sling Hospital Course: the patient underwent the above-named procedure on 11/12/2023. Her hospital course was unremarkable. She remained afebrile. She was up, voiding removing the AV lady, in generally without complaints. Time Spent with Patient Time attestation: Total time spent providing and/or coordinating discharge services: Exam Const: General: cooperative, healthy appearing and comfortable Nutritional Appearance: average body habitus Orientation/consciousness: oriented to person, oriented to place and oriented to time HENMT: Head: normal to inspection Resp: Effort & Inspection: normal respiratory effort Cardio: Rate: regular rate Rhythm: regular rhythm Heart sounds: S1 normal heart sound present and S2 normal heart sound present GI: Inspection: normal to inspection and incision ( Wounds are clean dry and intact) DS: Data Data Completed and Pending Pending studies at discharge: Pending at discharge 11/12/23 09:02 Surgical [PTH] Routine Labs on day of discharge: Labs from last 24 hours 11/13/23 06:03 WBC 10.1 H RBC 3.83 L Hgb 12.0 Hct 37.4 MCV 97.7 MCH 31.3 MCHC 32.1 RDW 12.7 Plt Count 147 L MPV 10.4 % Immature Plt Fraction 4.3 Discharge Plan Discharge Attending physician on discharge: Joaquin Koroma Discharging Clinician: Joaquin Koroma Patient Disposition: Home, Self-Care Discharge Instructions: No lifting >20lb, exercise for 6 weeks No tub bath or pool for 2 weeks No intercourse for 6 weeks Stand Alone Forms: General Discharge Instructions Follow-up/Referrals: Abdirizak Mcfadden MD [Physician] - (6 weeks as scheduled) Joaquin Koroma MD [Physician] - Discharge Medications: New docusate sodium [Colace] 100 mg capsule 100 mg PO BID Qty: 40 0RF tramadol 50 mg tablet 50 mg PO Q6H PRN (Reason: pain) Qty: 20 0RF Continued Refresh Optive Gregory-3 (PF) 0.5-1-0.5 % Dropperette 1 drp EACH EYE QID PRN (Reason: Dry Eye(S)) doxycycline hyclate 50 mg capsule 50 mg PO QACLUNCH ketoconazole 2 % cream 1 applic TOPICAL HS PRN (Reason: Skin Irritation) rosuvastatin [Crestor] 20 mg tablet 20 mg PO EVERY OTHER DAY Qty: 90 1RF vit Z-fyr-qrvn-bioflav-122HC 500-2.5-25 mg Tablet 1 tablet PO DAILY Held ibuprofen 200 mg Tablet 600 mg PO Q6H PRN (Reason: Pain) Hold Instructions: Resume on 11/14/23. Attending physician on admission: Abdirizak Mcfadden
[2023-11-13] MEDS: ACETAMINOPHEN 325 MG TABLET 650 MG PO (06:54)
[2023-11-13 08:30] VITALS: BP 144/62; PULSE 69; RESP 16; TEMP 36.8; O2SAT 98
[2023-11-13] MEDS: DOCUSATE SODIUM 100 MG CAPSULE PO (09:03)
[2023-11-13] MEDS: ENOXAPARIN 30 MG/0.3 ML SYRINGE SUB-Q (09:03)
== END 2023-11-13 11:00 | disposition home or self-care (01) ==
LOC: ANHSURGERY 05:57 → ANHOB2 12:00
PROVIDERS: Obstetrics & Gynecology; PCP Family Medicine; Visit Provider Urology
PROC: (CPT 57425; principal; 2023-11-12 07:30)
PROC: 0UT94ZZ Resection of Uterus, Percutaneous Endoscopic Approach (ICD-10-PCS; CPT 57425; 2023-11-12 07:30)
DX: N81.2 Incomplete uterovaginal prolapse (principal); N39.3 Stress incontinence (female) (male); N84.0 Polyp of corpus uteri; E78.5 Hyperlipidemia, unspecified; E66.9 Obesity, unspecified; Z68.32 Body mass index [BMI] 32.0-32.9, adult
CPT/HCPCS: 57425; 57288; 58542; S2900 ×2; 36415; 80053; 85025; 85027; 85055; 85610; 85730; 86850; 86900; 86901; 88307; 93005; 99199; A9270; C1771; C1781; J0690; J1100; J1650; J1836; J1885; J2405; J2704; J3010; J3480; J7030; J7120

== ENCOUNTER 2024-11-04 15:04 | Outpatient (CLI) | payer MEDICARE, SELFPAY ==
--- NOTE | ~2024-11-04 | MM_ITS ---
EXAMINATION: MM screening joi BI w luis a HISTORY: Screening TECHNIQUE: Craniocaudal and mediolateral oblique 3-D tomosynthesis images were obtained and synthetic 2-D images were generated. CAD analysis was submitted and interpreted. COMPARISON: 09/26/2023 and dating back to 04/10/2018 BREAST PARENCHYMAL COMPOSITION: There are scattered areas of fibroglandular density. FINDINGS: Biopsy marker within the lower outer left breast, consistent with patient's history. Multiple calcifications within the retroareolar position of the left breast, biopsy-proven benign. Ot herwise stable parenchymal pattern without suspicious microcalcifications, architectural distortion, discrete masses or significant asymmetry. IMPRESSION: 1. No mammographic or tomographic evidence of malignancy. 2. Recommend routine screening mammography in one year. BI-RADS Category 2: Benign finding(s). Reviewed, dictated and finalized at location A.
== END 2024-11-04 15:05 | disposition home or self-care (01) ==
PROVIDERS: PCP Family Medicine; Visit Provider Obstetrics & Gynecology
DX: Z12.31 Encounter for screening mammogram for malignant neoplasm of breast (principal)
CPT/HCPCS: 77063; 77067